=== PATIENT | male | born 1995 | race Caucasian/White ===

== ENCOUNTER 2022-02-05 00:33 | Emergency (ER) | payer OTHER, SELFPAY ==
[2022-02-05 00:34] VITALS: BP 133/63; PULSE 93; RESP 18; TEMP 36.6; O2SAT 99; BMI 30.2
--- NOTE | 2022-02-05 01:01 | ED.VIS.BACK ---
HPI History of Present Illness Chief Complaint: Back Informant: patient Onset/Context/Timing Onset: Yesterday Timing: Waxes and wanes Quality: Throbbing and - (Spasms) Location: Lumbar Current Severity: Mild Maximum Severity: Moderate Narrative Narrative: Patient presents secondary to low back pain. He states about twice a year he will get spasms in his lower back. He helped his sister move on Friday. He woke Friday morning with low back pain and spasms. Pain will occasionally wrap around to the groin but does not go down his legs. There was no fall or direct trauma to his back. Pain is worsened with movement. He denies fever or chills. PFSH PFSH Medical History no medical history no medical history Home Medications cyclobenzaprine 10 mg PO BID PRN #10 tab 02/05/22 [Rx Last Taken Unknown] naproxen [Naprosyn] 500 mg PO BID PRN #20 tab 02/05/22 [Rx Last Taken Unknown] Allergy/AdvReac Type Severity Reaction Status Date / Time No Known Allergies Allergy Verified 02/05/22 00:39 Social History Smoking Status: Current every day smoker tobacco type: cigarettes ROS ROS ED Constitutional Constitutional ED: Denies chills or fever(s) Eyes Eyes: Denies change in vision ENT ENT ED: Denies sore throat Cardiovascular Cardiovascular: Denies chest pain Respiratory/Chest Respiratory/Chest: Denies cough or dyspnea Gastrointestinal Gastrointestinal: Denies abdominal pain, nausea or vomiting Genitourinary Genitourinary ED: Denies dysuria or hematuria Musculoskeletal Musculoskeletal: Reports back pain Integumentary Denies rash Neurologic Neurologic: Denies headache(s), paresthesias or weakness Allergic/Immunologic Allergic/Immunologic ED: Denies urticaria EXAM Physical Exam Const Vital Signs: 02/05/22 00:34 Temperature 97.8 F Temperature Source Oral Pulse Rate 93 Respiratory Rate 18 Blood Pressure 133/63 H Blood Pressure Mean 86 Pulse Ox 99 Oxygen Delivery Method Room Air Positive well nourished and well developed General Appearance ED: well developed HEENT Reports moist mucous membranes Eyes PERRL and EOMs intact bilaterally Neck supple Resp normal respiratory effort and clear to auscultation bilaterally Cardio regular rate and regular rhythm GI normal to inspection, nondistended, normoactive bowel sounds, soft to palpation and non-tender Back/Spine Back/Spine Narrative: Reproducible tenderness of the bilateral lumbar paraspinal muscles. No midline tenderness. No overlying erythema or warmth. Extremity normal to inspection Extremity Narrative: Good strength and sensation of lower extremities. Patient observed ambulating up and down the hallway without difficulty. Neuro oriented x3 Sensorium / Orientation: alert Skin no rashes or lesions noted MDM [facility] Treatment and Re-Evaluation Narrative: Patient is given naproxen here. Prescriptions for naproxen and Flexeril given. Return instructions provided. Discharge Plan Triage Chief Complaint: Back ED Provider: Melina Ag Dx/Rx/DC Orders Clinical Impression: Back spasm Instructions: ED Back Spasm, No Trauma Prescriptions: New naproxen [Naprosyn] 500 mg tablet 500 mg PO BID PRN (Reason: pain) Qty: 20 RF: 0 cyclobenzaprine 10 mg tablet 10 mg PO BID PRN (Reason: muscle spasm) Qty: 10 RF: 0 Stand Alone Forms: ED Work / School Excuse Primary Care Provider: Care Physician,No Primary Referrals: NOT,DEFINED [NON-STAFF] - Disposition Disposition: Home, Self Care
[2022-02-05] MEDS: Naproxen 500 MG Tablet PO (01:03)
== END 2022-02-05 01:49 | disposition home or self-care (01) ==
LOC: ED 01:16
PROVIDERS: Emergency Provider Emergency Medicine; Visit Provider Emergency Medicine
DX: R25.2 Cramp and spasm (principal); R10.30 Lower abdominal pain, unspecified; F17.210 Nicotine dependence, cigarettes, uncomplicated
CPT/HCPCS: 99283